=== PATIENT | male | born 1960 | race Caucasian/White ===

== ENCOUNTER 2019-11-02 20:01 | Inpatient (IN) | payer OTHER ==
[~2019-11-02] VITALS: Ht 180.3 cm; Wt 98.7 kg
[2019-11-02 20:02] VITALS: BP_SYST 123
[2019-11-02] MEDS ORDERED: NACL 0.9% 1,000 ML IV ONE (20:39)
[2019-11-02] MEDS ORDERED: ASPIRIN 81 MG TAB.CHEW PO ONE (20:45)
[2019-11-02] MEDS ORDERED: DILTIAZEM HCL 25 MG/5 ML VIAL IVP ONE ×2 (21:00→21:15)
[2019-11-02 21:07] LABS: BASOPHILS % (AUTO) 0.2 % (0.0-2.0); EOSINOPHILS % (AUTO) 0.1 % (0.0-4.0); HEMATOCRIT 41.2 % (36-54); HEMOGLOBIN 14.3 g/dL (14.0-18.0); LYMPHOCYTES # (AUTO) 0.8 K/uL (1.0-5.5); LYMPHOCYTES % (AUTO) 4.2 % (20.5-51.5); MEAN CORPUSCULAR HEMOGLOBIN 32 pg (27-31); MEAN CORPUSCULAR HGB CONC 35 % (32-36); MEAN CORPUSCULAR VOLUME 92 fL (79.0-98.0); MONOCYTES # (AUTO) 0.9 K/uL (0.0-1.0); MONOCYTES % (AUTO) 5.1 % (1.7-9.3); NEUTROPHILS # (AUTO) 16.5 K/uL (1.8-7.7); NEUTROPHILS % (AUTO) 90.4 % (40.0-70.0); PLATELET COUNT (AUTO) 195 K/uL (130-430); RED BLOOD CELL COUNT(AUTO) 4.46 MIL/uL (4.2-6.2); RED CELL DISTRIBUTION WIDTH 14.7 % (9.0-15.0); WHITE BLOOD COUNT (AUTO) 18.2 K/uL (4.8-10.8)
[2019-11-02] MEDS ORDERED: DILTIAZEM HCL 25 MG/5 ML VIAL ONE (21:11)
[2019-11-02 21:16] LABS: CALCIUM 7.8 mg/dL (8.4-11.0); CREATININE 2.12 mg/dL (0.55-1.30); POTASSIUM 3.6 mmol/L (3.5-5.1)
[2019-11-02] MEDS ORDERED: DILTIAZEM HCL 125 MG in D5W 100 ML IV ONE (21:30)
[2019-11-02 21:33] LABS: ALBUMIN 2.5 g/dL (3.4-4.8); TOTAL BILIRUBIN 0.6 mg/dL (0.0-1.0)
[2019-11-02] MEDS ORDERED: DILTIAZEM HCL 125 MG/25 ML VIAL IV ONE (21:45)
[2019-11-02 22:32] LABS: INR 1.1 (0.80-1.20); PROTHROMBIN TIME 10.8 SECS (9.5-12.5)
[2019-11-02] MEDS ORDERED: DILTIAZEM HCL 125 MG in D5W 100 ML IV PRN (23:45)
[2019-11-03] VITALS (8 sets, daily range): BP systolic 117–128
[2019-11-03] MEDS ORDERED: LISI30TA36 PO (00:36)
[2019-11-03] MEDS ORDERED: NS 500 ML IV ONE (04:00)
[2019-11-03] MEDS ORDERED: ALBUTEROL SULFATE 0.083% 2.5 MG/3 ML VIAL.NEB INH PRN (10:00)
[2019-11-03] MEDS ORDERED: IPRATROPIUM BROM 0.5 MG/2.5 ML VIAL.NEB (ATROVENT) INH PRN (10:00)
[2019-11-03] MEDS: METOPROLOL TARTRATE 25 MG TABLET PO SCH ×2 (10:34→21:23)
[2019-11-03] MEDS ORDERED: IPRATROPIUM BROM 0.5 MG/2.5 ML VIAL.NEB (ATROVENT) INH ONE (10:40)
[2019-11-03] MEDS ORDERED: ALBUTEROL SULFATE 0.083% 2.5 MG/3 ML VIAL.NEB INH ONE (10:40)
[2019-11-03 10:43] LABS: CALCIUM 7.4 mg/dL (8.4-11.0); CREATININE 2.24 mg/dL (0.55-1.30)
[2019-11-03] MEDS: IPRATROPIUM BROM 0.5 MG/2.5 ML VIAL.NEB (ATROVENT) INH SCH ×4 (11:00→23:00)
[2019-11-03] MEDS: ALBUTEROL SULFATE 0.083% 2.5 MG/3 ML VIAL.NEB INH SCH ×4 (11:00→23:00)
[2019-11-03] MEDS: cefTRIAXone 1 GM IVPB PREMIX 50 ML IV SCH (11:52)
[2019-11-03] MEDS: AZITHROMYCIN 500 MG in NS 250 ML IV SCH (12:46)
[2019-11-03] MEDS ORDERED: ACETAMINOPHEN 325 MG TABLET PO PRN (17:45)
[2019-11-03] MEDS ORDERED: ACETAMINOPHEN 325 MG TABLET ONE (18:06)
[2019-11-03] MEDS: APIXABAN 2.5 MG TABLET PO SCH (21:24)
[2019-11-04] VITALS: BP_SYST 123
[2019-11-04] MEDS: ALBUTEROL SULFATE 0.083% 2.5 MG/3 ML VIAL.NEB INH SCH ×2 (03:00→08:17)
[2019-11-04] MEDS: IPRATROPIUM BROM 0.5 MG/2.5 ML VIAL.NEB (ATROVENT) INH SCH ×2 (03:00→08:17)
[2019-11-04 07:51] VITALS: BP_SYST 114
[2019-11-04 07:55] LABS: BASOPHILS % (AUTO) 0.1 % (0.0-2.0); EOSINOPHILS # (AUTO) 0.1 K/uL (0.0-0.4); EOSINOPHILS % (AUTO) 0.4 % (0.0-4.0); HEMATOCRIT 38.5 % (36-54); HEMOGLOBIN 13.1 g/dL (14.0-18.0); LYMPHOCYTES # (AUTO) 0.7 K/uL (1.0-5.5); LYMPHOCYTES % (AUTO) 5.3 % (20.5-51.5); MEAN CORPUSCULAR HEMOGLOBIN 32 pg (27-31); MEAN CORPUSCULAR HGB CONC 34 % (32-36); MEAN CORPUSCULAR VOLUME 94 fL (79.0-98.0); MONOCYTES # (AUTO) 0.6 K/uL (0.0-1.0); MONOCYTES % (AUTO) 4.5 % (1.7-9.3); NEUTROPHILS # (AUTO) 11.6 K/uL (1.8-7.7); NEUTROPHILS % (AUTO) 89.7 % (40.0-70.0); PLATELET COUNT (AUTO) 204 K/uL (130-430); RED CELL DISTRIBUTION WIDTH 14.9 % (9.0-15.0)
[2019-11-04 08:12] LABS: WHITE BLOOD COUNT (AUTO) 12.9 K/uL (4.8-10.8)
[2019-11-04 08:30] LABS: ALBUMIN 2.1 g/dL (3.4-4.8); CALCIUM 7.6 mg/dL (8.4-11.0); CREATININE 1.91 mg/dL (0.55-1.30); POTASSIUM 3.5 mmol/L (3.5-5.1); THYROID STIMULATING HORMONE 1.06 uIu/mL (0.36-3.74); TOTAL BILIRUBIN 0.5 mg/dL (0.0-1.0)
[2019-11-04] MEDS: METOPROLOL TARTRATE 25 MG TABLET PO SCH (09:00)
[2019-11-04] MEDS: APIXABAN 2.5 MG TABLET PO SCH (09:03)
[2019-11-04 09:49] LABS: BILIRUBIN,URINE NEGATIVE (NEGATIVE); BLOOD, URINE 2+ (NEGATIVE); CLARITY/URINE CLEAR (CLEAR); COLOR,URINE YELLOW (YELLOW); GLUCOSE,URINE 3+ (NEGATIVE); KETONES,URINE NEGATIVE (NEGATIVE); LEUKOCYTE ESTERASE ,URINE NEGATIVE (NEGATIVE); NITRITE, URINE NEGATIVE (NEGATIVE); PROTEIN URINE 2+ (NEGATIVE); UROBILINOGEN,URINE 0.2 (0.2-1.0)
[2019-11-04] MEDS ORDERED: APIX5TAB PO (10:26)
[2019-11-04] MEDS ORDERED: METO25TA3 PO (10:26)
[2019-11-04] MEDS ORDERED: LEVO500T89 PO (10:26)
[2019-11-04 11:02] LABS: BACTERIA,URINE FEW /HPF (None Seen); WBC,URINE 0-3 /HPF (0-3)
[2019-11-04] MEDS: cefTRIAXone 1 GM IVPB PREMIX 50 ML IV SCH (11:46)
[2019-11-04 12:00] VITALS: BP_SYST 147
[2019-11-04] MEDS: AZITHROMYCIN 500 MG in NS 250 ML IV SCH (12:17)
[2019-11-04 14:03] VITALS: BP_SYST 140
== END 2019-11-04 16:05 | disposition home or self-care (01) | DRG 198 ==
LOC: SED 20:01 → SIC 23:34 → STU 11-03 04:30
PROVIDERS: ADMIT Internal Medicine Hospice and Palliative Medicine; ATTEND Internal Medicine Hospice and Palliative Medicine
DX: I24.8 Other forms of acute ischemic heart disease (principal); N17.0 Acute kidney failure with tubular necrosis; E43 Unspecified severe protein-calorie malnutrition; C90.00 Multiple myeloma not having achieved remission; E11.22 Type 2 diabetes mellitus with diabetic chronic kidney disease; I48.0 Paroxysmal atrial fibrillation; I35.0 Nonrheumatic aortic (valve) stenosis; I12.9 Hypertensive chronic kidney disease with stage 1 through stage 4 chronic kidney disease, or unspecified chronic kidney disease; J20.9 Acute bronchitis, unspecified; N18.9 Chronic kidney disease, unspecified; R07.89 Other chest pain; Z79.899 Other long term (current) drug therapy
CPT/HCPCS: 36415; 71045; 76770; 80048; 80053; 80061; 81000-TC; 83605; 83880; 84443-TC; 84484; 85025; 85610-TC; 85730-TC; 86710; 87040-TC; 87081; 93005; 93306; 94640; 96361; 96374; 99285; G0378; J0456; J0696; J3490; J7030; J7050; J7613